=== PATIENT | female | born 1960 | race Caucasian/White ===

== ENCOUNTER → 2019-03-12 | Outpatient (CLI) | payer OTHER ==
--- NOTE | 2019-03-12 15:26 | RADIOLOGY REPORT (SQ) ---
EXAM DESCRIPTION: CT SINUSES FOR ENT COMPLETED DATE/TIME: 03/12/2019 9:04 am REASON FOR STUDY: R06.09 OTHER FORMS OF DYSPNEA R06.09 OTHER FORMS OF DYSPNEA COMPARISON: None. TECHNIQUE: Noncontrast scanning through the paranasal sinuses using bone algorithm. Reconstructed MPR images reviewed. All images stored on PACS. All CT scanners at this facility use dose modulation, iterative reconstruction, and/or weight based d osing when appropriate to reduce radiation dose to as low as reasonably achievable (ALARA). [facility]: Dose Right [facility]: CareDose [facility]: Dose Right [facility]: Teradose 4D [facility]: [employer] RADIATION DOSE: 46.2mGy. LIMITATIONS: None. FINDINGS: Right sinuses and drainage pathways: Post-surgical changes: None. Frontal sinus: Normal. Frontoethmoidal Recess: Normal. Anterior Ethmoid Sinuses: Normal. Posterior Ethmoid Sinuses: Normal. Sphenoid Sinus: Normal. Sphenoethmoidal Recess: Normal. Maxillary Sinus: Minimal mucous membrane thickening floor right maxillary sinus Ostiomeatal Complex: Normal. Left Sinuses and Drainage Pathways: Post-Surgical Changes: None. Frontal Sinus: Normal. Frontoethmoidal Recess: Normal. Anterior Ethmoid Sinuses: Normal. Posterior Ethmoid Sinuses: Normal. Sphenoid Sinus: Normal. Sphenoethmoidal Recess: Normal. Maxillary Sinus: Mild mucous membrane thickening floor left maxillary sinus Ostiomeatal Complex: Mucous membrane thickening along the left maxillary outlet coronal image 17 and 18 Right Olfactory Fossa: No polyps. Left Olfactory Fossa: No polyps. Middle Turbinate Viridiana Bullosa: Bilateral Paradoxical Middle Turbinate: No. Atelectatic Uncinated Process: No. Frontal Donna Cell Type I: On the left Frontal Donna Cell Type II: No. Interfrontal Sinus Septal Cell: None. Supra-Orbital Ethmoid: Bilateral Frontal Bullar Cell: None. Suprabullar Bullar Cell: None. Sphenoethmoidal ([place]) Cell: None. Pneumatization of the Anterior Clinoid Processes: No Hypoplastic Maxillary Sinus: None. Osteoneogenesis: None. Bone Dehiscence:None. Nasal Cavity: Normal. Nasal Septum: Midline Anatomic Variants: Right Vidian Canal: Normal. Left Vidian Canal: Normal. IMPRESSION: Mild mucous membrane thickening along the right and left maxillary sinus inferior aspect TECHNICAL DOCUMENTATION: JOB ID: [id number] Quality ID # [id number]: Final reports with documentation of one or more dose reduction techniques (e.g., Au tomated exposure control, adjustment of the mA and/or kV according to patient size, use of iterative reconstruction technique) 2010 [employer]- All Rights Reserved Reading location - IP/workstation name: [email or web address]
== END ==
LOC: RAD 08:46
PROVIDERS: ATTEND Otolaryngology
DX: R06.09 Other forms of dyspnea (principal)
CPT/HCPCS: 70486

== ENCOUNTER 2019-05-09 07:20 | Day surgery (SDC) | payer OTHER ==
[2019-05-02 10:20] LABS: HEMATOCRIT 41.9 % (36.0-47.0); HEMOGLOBIN 14.4 g/dL (12.0-15.5); MEAN CORPUSCULAR HEMOGLOBIN 30.8 pg (27.0-33.4); MEAN CORPUSCULAR HGB CONC 34.3 g/dL (32.0-36.0); MEAN CORPUSCULAR VOLUME 90 fl (80-97); PLATELET COUNT 266 10^3/uL (150-450); RED BLOOD COUNT 4.67 10^6/uL (3.72-5.28); RED CELL DISTRIBUTION WIDTH 13.5 % (11.5-14.0)
[2019-05-02 10:48] LABS: ANION GAP 11 (5-19); BLOOD UREA NITROGEN 21 mg/dL (7-20); CALCIUM 9.6 mg/dL (8.4-10.2); CARBON DIOXIDE 28 mmol/L (22-30); CHLORIDE 103 mmol/L (98-107); GLUCOSE 114 mg/dL (75-110); POTASSIUM 4.4 mmol/L (3.6-5.0)
--- NOTE | 2019-05-02 20:59 | EKG REPORT ---
SEVERITY:- ABNORMAL ECG - SINUS RHYTHM NONSPECIFIC T ABNORMALITIES, DIFFUSE LEADS [facility] : Confirmed by: Leighann Lopez 02-May-2019 20:58:43
[~2019-05-09 07:20] MED LIST: ALBUTEROL SULFATE 0.083% NEB 2.5 MG/3 ML AMPUL NEB PRN; CEFAZOLIN SODIUM 2 GM in DEXTROSE 5%-WATER 100 ML IV PRN; LACTATED RINGERS 1000 ML IV PRN; LIDOCAINE 0.5% INJ-PF (5 MG/ML) 50 ML SDV SUBCUT PRN
[2019-05-09] MEDS ORDERED: ALBUTEROL SULFATE 0.083% NEB 2.5 MG/3 ML AMPUL NEB ONE (08:45)
[2019-05-09] MEDS ORDERED: CITRIC ACID/SODIUM CITRATE ORAL SOLN 15 ML UDCUP ONE (08:51)
[2019-05-09] MEDS ORDERED: OXYMETAZOLINE HCL 0.05% NASAL SPRAY 15 ML BOTTLE ONE ×2 (09:47→14:47)
[2019-05-09] MEDS ORDERED: TOBRAMYCIN SULFATE/DEXAMETH OPH OINTMENT 3.5 GM ONE (09:47)
[2019-05-09] MEDS ORDERED: MINERAL OIL (STERILE) 10 ML VIAL ONE (09:47)
[2019-05-09] MEDS ORDERED: BUPIVACAINE HCL 0.5%/EPI 1:200000 INJ 1.8 ML CARTRIDGE ONE (09:47)
[2019-05-09] MEDS ORDERED: NEOMY/BACITRAC ZN/POLY OINT 15 GM ONE (09:47)
[2019-05-09] MEDS ORDERED: LIDOCAINE 1%/EPINEPHRINE INJ 20 ML VIAL ONE (09:48)
[2019-05-09] MEDS ORDERED: FENTANYL CITRATE INJ/PF 250 MCG/5 ML AMPULE ONE (09:48)
[2019-05-09] MEDS ORDERED: DEXMEDETOMIDINE INJ 80 MCG/20 ML VIAL IV ONE (09:48)
[2019-05-09] MEDS ORDERED: MIDAZOLAM 2 MG/2 ML INJ ONE (09:48)
[2019-05-09] MEDS ORDERED: ONDANSETRON HCL INJ/PF 4 MG/2 ML SDV ONE ×2 (09:48→10:37)
[2019-05-09] MEDS ORDERED: PROPOFOL INJ 200 MG/20 ML VIAL IV ONE ×5 (09:48→15:36)
[2019-05-09] MEDS ORDERED: DEXAMETHASONE SOD PHOSPHATE INJ 4 MG/1 ML VIAL ONE ×2 (09:48→10:15)
[2019-05-09] MEDS ORDERED: LIDOCAINE 2% INJ-PF (100 MG/5 ML) SYRINGE ONE (09:49)
[2019-05-09] MEDS ORDERED: EPINEPHRINE INJ 1 MG/10 ML DISP.SYRIN ONE (09:50)
[2019-05-09] MEDS ORDERED: BUPIVACAINE HCL 0.5 % INJ/PF 30 ML SDV ONE (09:52)
[2019-05-09] MEDS ORDERED: EPINEPHRINE INJ/PF 1 MG/1 ML AMPULE ONE (09:52)
[2019-05-09] MEDS ORDERED: BALANCED SALT IRRIG SOLN COMB2 15 ML BOTTLE ONE (09:55)
[2019-05-09] MEDS ORDERED: ROCURONIUM BROMIDE INJ 50 MG/5 ML VIAL IV ONE (10:15)
[2019-05-09] MEDS ORDERED: SUCCINYLCHOLINE CHLORIDE INJ 200 MG/10 ML VIAL ONE (10:15)
[2019-05-09] MEDS ORDERED: KETOROLAC TROMETHAMINE 60 MG/2 ML SDV ONE (10:15)
[2019-05-09] MEDS ORDERED: PROMETHAZINE HCL INJ 25 MG/1 ML VIAL IV PRN ×4 (11:13→15:12)
[2019-05-09] MEDS ORDERED: DIPHENHYDRAMINE HCL 50 MG/ML VIAL IV PRN ×2 (11:13→15:12)
[2019-05-09] MEDS ORDERED: FENTANYL CITRATE INJ/PF 100 MCG/2 ML AMPUL IV PRN ×6 (11:13→15:12)
[2019-05-09] MEDS ORDERED: ONDANSETRON HCL INJ/PF 4 MG/2 ML SDV IV PRN ×3 (11:13→16:55)
[2019-05-09] MEDS ORDERED: MORPHINE SULFATE 10 MG/ML INJ IV PRN ×2 (11:13→15:12)
[2019-05-09] MEDS ORDERED: MEPERIDINE HCL/PF INJ 25 MG/1 ML DISP.SYRIN IV PRN ×2 (11:13→15:12)
[2019-05-09] MEDS ORDERED: OXYCODONE-ACETAMINOPHEN 5-325 MG TABLET PO PRN ×5 (11:13→16:55)
[2019-05-09] MEDS ORDERED: ACETAMINOPHEN 1,000 MG/100 ML RTUPB IV ONE (12:40)
[2019-05-09 20:10] VITALS: BP 149/90
--- NOTE | 2019-05-19 01:37 | Operative Report ---
Operative Report-[facility] Operative Report: DATE OF OPERATION: May 09, 2019 PREOPERATIVE DIAGNOSES: 1. Acute recurrent sinusitis 2. Chronic rhinosinusitis 3. Bilateral nasal valve deficiencies 4. Nasal Deformities, Acquired 5. Chronic Nasal Dyspnea 6. Nasal septal deviation, Acquired 7. Bilateral inferior turbinate hypertrophy 8. Bilateral trixie bullosa 9. Chronic postnasal drainage and rhinorrhea 10. History of nasal trauma 11. History of prior nasal surgery POSTOPERATIVE DIAGNOSES: 1. Acute recurrent sinusitis 2. Chronic rhinosinusitis 3. Bilateral nasal valve deficiencies 4. Nasal Deformities, Acquired 5. Chronic Nasal Dyspnea 6. Nasal septal deviation, Acquired 7. Bilateral inferior turbinate hypertrophy 8. Bilateral trixie bullosa 9. Chronic postnasal drainage and rhinorrhea 10. History of nasal trauma 11. History of prior nasal surgery PROCEDURES: 1. External septal rhinoplasty addressing the bony nasal pyramid and upper and lower cartilages multiple different irradiated rib costal cartilage grafts and with nasal tip elevation and stabilization 2. Functional endoscopic sinus surgery with bilateral transnasal rigid surgical endoscopy 3. Bilateral frontal sinus balloon sinuplasty via bilateral transnasal rigid surgical endoscopy 4. Bilateral maxillary sinus balloon sinus plasty via bilateral transnasal rigid surgical endoscopy 5. Bilateral ClariFix [place] [address] via bilateral transnasal rigid surgical endoscopy CPT code 87351 6. Bilateral intramural inferior turbinate reductions using submucus resection techniques 7. Bilateral trixie bullosa reductions SURGEON: Dr. Jt Lyon Anesthesia Staff: ADELINA Tabares ANESTHESIA: General endotracheal tube anesthesia/GETA DRAINS: None SPONGE COUNT: Verified NEEDLE COUNT: Verified SPECIMEN/MATERIALS FORWARD TO THE LAB: None ESTIMATED BLOOD LOSS: 50 mL TOTAL IV FLUIDS: 2100 mL URINE OUTPUT: 1050 mL COMPLICATIONS: None FINDINGS: 1. Nasal septal deviations with a remaining cartilaginous L-strut in her prior 2002 nasal surgery which was noted to be very delicate, weak, and unstable and changes consistent with prior nasal surgery. 2. Nasal deformities with cartilaginous and bony deformities and nasal valve deficiencies/collapse and inadequate nasal tip complex support. 3. No sinonasal polyps or polypoid changes noted. 4. Bilateral inferior turbinate hypertrophy and bilateral trixie bullosa. INDICATIONS: This is a 58-year-old white female who was seen and evaluated in the [place] otolaryngology office. The patient was referred for and they complained of a history of chronic nasal dyspnea over the years. The patient has desired to undergo nasal surgery to improve functional nasal airflow and overall quality of life. The procedure, and all of the risks and complications were all discussed in detail with the patient. They voiced an understanding, agreed to proceed, and consent was obtained. DESCRIPTION OF OPERATIVE PROCEDURE: The patient was taken to the main operating room and placed on the operating room table in the supine position. Appropriate monitors were placed. Using mask and IV access general anesthesia was induced. The patient was then transorally intubated without difficulty. The table was next positioned for nasal surgery. The patient underwent a nasal examination and local anesthetic with epinephrine was administered to establish a nasal block. The patient next had two Afrin soaked neuropatties placed into each nasal passage. The patient was then prepped and draped in the usual fashion for nasal surgery. The neuropatties were removed and the patient underwent a hemitransfixion incision. There was elevation of the mucoperichondrial and mucoperiosteal flaps without difficulty. The bony cartilaginous junction was identified and divided and the most deviated portions of the bony and cartilaginous septum were removed without difficulty. There was a greater then 1.5 X 1.5 cm cartilaginous L-Strut preserved. Attention was now turned to performing bilateral inferior turbinate reductions. The turbinate bipolar wand was used to make 2 - 3 intramural passes in each inferior turbinate. At this point the turbinate microdebrider system at a setting of 1500 RPM was used to perform bilateral inferior turbinate submucous resections. This was followed by use of the [place] elevator to outfracture each inferior turbinate. [Excessive/redundant mucosa at the anterior portion of the inferior turbinates was next trimmed with margins reapproximated with chromic suture.] At this point the nose was thoroughly suctioned. Once complete the septum was repositioned in the midline. Cartilage which had been excised during the case was placed back between the mucosal flaps. At this point the mucosal flaps were reapproximated and the hemitransfixion incision was closed using Chromic suture. [Chromic suture was also used to perform a septal mattress whipstitch.] This was followed by placement of intranasal supporting material in each nasal passage that was secured at the caudal aspect with 4-0 Prolene suture. The nose was then cleaned and dried. Next, the patient was returned to the anesthesia staff and was allowed to emerge from general anesthesia. The patient was extubated in the main operating room and was then transported to the postanesthesia recovery unit in stable condition. There were no complications. .
== END 2019-05-09 18:38 | disposition home or self-care (01) ==
LOC: OROUT 07:20
PROVIDERS: ATTEND Otolaryngology
DX: J34.3 Hypertrophy of nasal turbinates (principal); J30.9 Allergic rhinitis, unspecified; E07.89 Other specified disorders of thyroid; J32.9 Chronic sinusitis, unspecified; J34.89 Other specified disorders of nose and nasal sinuses; J34.2 Deviated nasal septum; R09.82 Postnasal drip; R06.09 Other forms of dyspnea
CPT/HCPCS: 93005; 36415; 85027; 80048; 93010; 00160; 30140; 31240; 30420; 31296; 31295; 30117; J2250; J3490 ×10; J0690; J1100; J0171; J1885; J3010; J2001; J0330; J2405; J7060; J2704; J0131; 160